=== PATIENT | male | born 1965 | race Caucasian/White ===

== ENCOUNTER 2017-09-05 06:55 | Day surgery (SDC) | payer OTHER ==
[2017-09-05] MEDS ORDERED: FENTAnyl 50 MCG/ML VIAL (09:45)
[2017-09-05] MEDS ORDERED: MIDAZOLAM 1 MG/ML 2 ML INJ ×2 (09:45)
== END 2017-09-05 16:21 | disposition home or self-care (01) ==
LOC: GIL 06:55
DX: Z12.11 Encounter for screening for malignant neoplasm of colon (principal); K29.50 Unspecified chronic gastritis without bleeding; K64.8 Other hemorrhoids; F17.200 Nicotine dependence, unspecified, uncomplicated
CPT/HCPCS: 43239; 82962; 88305; 88312

== ENCOUNTER 2017-09-16 13:18 | Emergency (ER) | payer OTHER ==
[2017-09-16] MEDS: FAMOTIDINE 20 MG INJ IV (17:39)
[2017-09-16] MEDS: LIDOCAINE/MYLANTA 40 ML BTL PO (17:39)
[2017-09-16] MEDS: ONDANSETRON 4 MG INJ IV (17:39)
[2017-09-16] MEDS: morphine 4 MG/ML VIAL IV (17:40)
[2017-09-16] MEDS: LACTATED RINGER'S 1,000 ML IV (17:40)
[2017-09-16 17:53] LABS: ADD MAN DIFF? NO
[2017-09-16 17:55] LABS: WHITE BLOOD COUNT 7.9 10^3/ul (4.8-10.8)
[2017-09-16 17:55] LABS: BASOPHILS % 0.4 % (0.0-2.0); EOSINOPHILS # 0.1 10^3/ul (0.0-0.5); EOSINOPHILS % 0.9 % (0.0-7.0); HEMATOCRIT 39.6 % (42.0-52.0); HEMOGLOBIN 13.8 g/dl (14.0-18.0); LYMPHOCYTES # 1.9 10^3/ul (0.8-2.9); LYMPHOCYTES % 23.9 % (15.0-51.0); MEAN CORPUSCULAR HEMOGLOBIN 30.9 pg (29.0-33.0); MEAN CORPUSCULAR HGB CONC 34.8 g/dl (32.0-37.0); MEAN CORPUSCULAR VOLUME 88.6 fl (82.0-101.0); MEAN PLATELET VOLUME 9.2 fl (7.4-10.4); MONOCYTE # 0.5 10^3/ul (0.3-0.9); MONOCYTES % 6.1 % (0.0-11.0); NEUTROPHIL # 5.4 10^3/ul (1.6-7.5); NEUTROPHILS % 68.4 % (39.0-77.0); PLATELET COUNT 198 10^3/UL (140-415); RED BLOOD COUNT 4.47 10^6/ul (4.70-6.10); RED CELL DISTRIBUTION WIDTH 11.7 % (11.5-14.5)
[2017-09-16 18:01] LABS: ADD UMIC NO; UR ASCORBIC ACID 20 mg/dL (NEGATIVE); UR BILIRUBIN (Dip) NEGATIVE (NEGATIVE); UR BLOOD (Dip) NEGATIVE (NEGATIVE); UR CLARITY CLEAR (CLEAR); UR COLOR YELLOW (YELLOW); UR GLUCOSE (Dip) NEGATIVE (NEGATIVE); UR KETONES (Dip) NEGATIVE (NEGATIVE); UR LEUKOCYTE ESTERASE (Dip) NEGATIVE Leu/ul (NEGATIVE); UR NITRITE (Dip) NEGATIVE (NEGATIVE); UR SPECIFIC GRAVITY (Dip) 1.009 (1.003-1.030); UR TOTAL PROTEIN (Dip) NEGATIVE (NEGATIVE); UR UROBILINOGEN (Dip) NEGATIVE (NEGATIVE)
[2017-09-16 18:13] LABS: ALANINE AMINOTRANSFERASE 24 IU/L (13-69); ALBUMIN 4.3 g/dl (3.3-4.9); ALBUMIN/GLOBULIN RATIO 1.26; ALKALINE PHOSPHATASE 70 IU/L (42-121); ANION GAP 15 (8-16); ASPARTATE AMINO TRANSFERASE 22 IU/L (15-46); BILIRUBIN,INDIRECT 0.3 mg/dl (0-1.1); BILIRUBIN,TOTAL 0.3 mg/dl (0.2-1.3); BLOOD UREA NITROGEN 16 mg/dl (7-20); CALCIUM 9.4 mg/dl (8.4-10.2); CARBON DIOXIDE 31 mmol/L (21-31); CHLORIDE 101 mmol/L (97-110); CREATININE 0.77 mg/dl (0.61-1.24); GLUCOSE 159 mg/dl (70-220); LIPASE 119 U/L (23-300); POTASSIUM 4.4 mmol/L (3.5-5.1); SODIUM 143 mmol/L (135-144); TOTAL PROTEIN 7.7 g/dl (6.1-8.1)
== END 2017-09-16 19:34 | disposition home or self-care (01) ==
LOC: FTE 13:18
DX: R10.13 Epigastric pain (principal); E11.9 Type 2 diabetes mellitus without complications
CPT/HCPCS: 36415; 80053; 81003; 83690; 85025; 96374; 96375; 99284-25

== ENCOUNTER 2018-03-30 22:01 | Inpatient (IN) | payer OTHER ==
[2018-03-30] MEDS ORDERED: NACL 0.9% 3 ML SYG IV (23:00)
[2018-03-30] MEDS ORDERED: ACETAMINOPHEN 325 MG TAB PO (23:00)
[2018-03-30] MEDS: SOD CHLORIDE 0.9% 1,000 ML IV (23:10)
[2018-03-30] MEDS: ONDANSETRON 4 MG INJ IV (23:12)
[2018-03-30] MEDS: morphine 2 MG INJ IV (23:12)
[2018-03-31] MEDS: PANTOPRAZOLE 40 MG INJ IV ×2 (00:24→05:49)
[2018-03-31] MEDS: SUCRALFATE 1 GM TAB PO ×5 (00:24→20:56)
[2018-03-31] MEDS: LORAZEPAM 2 MG INJ IV (00:24)
[2018-03-31 00:28] LABS: ADD MAN DIFF? NO
[2018-03-31 00:30] LABS: BASOPHILS % 0.5 % (0.0-2.0); EOSINOPHILS # 0.1 10^3/ul (0.0-0.5); EOSINOPHILS % 0.6 % (0.0-7.0); HEMATOCRIT 37.4 % (42.0-52.0); HEMOGLOBIN 12.9 g/dl (14.0-18.0); LYMPHOCYTES # 2.1 10^3/ul (0.8-2.9); LYMPHOCYTES % 26.7 % (15.0-51.0); MEAN CORPUSCULAR HEMOGLOBIN 30.3 pg (29.0-33.0); MEAN CORPUSCULAR HGB CONC 34.5 g/dl (32.0-37.0); MEAN CORPUSCULAR VOLUME 87.8 fl (82.0-101.0); MEAN PLATELET VOLUME 9.2 fl (7.4-10.4); MONOCYTE # 0.5 10^3/ul (0.3-0.9); MONOCYTES % 6.7 % (0.0-11.0); NEUTROPHIL # 5.1 10^3/ul (1.6-7.5); NEUTROPHILS % 65.2 % (39.0-77.0); PLATELET COUNT 180 10^3/UL (140-415); RED BLOOD COUNT 4.26 10^6/ul (4.70-6.10); RED CELL DISTRIBUTION WIDTH 11.5 % (11.5-14.5)
[2018-03-31 00:30] LABS: WHITE BLOOD COUNT 7.9 10^3/ul (4.8-10.8)
[2018-03-31 00:48] LABS: ALANINE AMINOTRANSFERASE 20 IU/L (13-69); ALBUMIN 4.1 g/dl (3.3-4.9); ALBUMIN/GLOBULIN RATIO 1.57; ALKALINE PHOSPHATASE 58 IU/L (42-121); ANION GAP 11 (5-13); ASPARTATE AMINO TRANSFERASE 21 IU/L (15-46); BILIRUBIN,INDIRECT 0.3 mg/dl (0-1.1); BILIRUBIN,TOTAL 0.3 mg/dl (0.2-1.3); BLOOD UREA NITROGEN 16 mg/dl (7-20); CARBON DIOXIDE 27 mmol/L (21-31); CHLORIDE 102 mmol/L (97-110); CREATININE 0.79 mg/dl (0.61-1.24); Estimated GFR > 60 mL/min (>60); GLUCOSE 107 mg/dl (70-220); POTASSIUM 4.6 mmol/L (3.5-5.1); SODIUM 140 mmol/L (135-144); TOTAL PROTEIN 6.7 g/dl (6.1-8.1)
[2018-03-31 06:31] LABS: ADD MAN DIFF? NO
[2018-03-31 06:34] LABS: WHITE BLOOD COUNT 6.7 10^3/ul (4.8-10.8)
[2018-03-31 06:34] LABS: BASOPHILS % 0.6 % (0.0-2.0); EOSINOPHILS # 0.1 10^3/ul (0.0-0.5); HEMATOCRIT 39.6 % (42.0-52.0); HEMOGLOBIN 13.4 g/dl (14.0-18.0); LYMPHOCYTES # 2.4 10^3/ul (0.8-2.9); MEAN CORPUSCULAR HEMOGLOBIN 30.1 pg (29.0-33.0); MEAN CORPUSCULAR HGB CONC 33.8 g/dl (32.0-37.0); MEAN PLATELET VOLUME 9.5 fl (7.4-10.4); MONOCYTE # 0.5 10^3/ul (0.3-0.9); MONOCYTES % 7.7 % (0.0-11.0); NEUTROPHIL # 3.7 10^3/ul (1.6-7.5); NEUTROPHILS % 55.6 % (39.0-77.0); PLATELET COUNT 191 10^3/UL (140-415); RED BLOOD COUNT 4.45 10^6/ul (4.70-6.10); RED CELL DISTRIBUTION WIDTH 11.5 % (11.5-14.5)
[2018-03-31 07:03] LABS: HEMOGLOBIN A1C 7.3 % (0-5.9)
[2018-03-31 07:20] LABS: ALANINE AMINOTRANSFERASE 19 IU/L (13-69); ALBUMIN 4.1 g/dl (3.3-4.9); ALBUMIN/GLOBULIN RATIO 1.36; ALKALINE PHOSPHATASE 56 IU/L (42-121); ANION GAP 10 (5-13); ASPARTATE AMINO TRANSFERASE 23 IU/L (15-46); BILIRUBIN,INDIRECT 0.5 mg/dl (0-1.1); BILIRUBIN,TOTAL 0.5 mg/dl (0.2-1.3); BLOOD UREA NITROGEN 14 mg/dl (7-20); CARBON DIOXIDE 29 mmol/L (21-31); CHLORIDE 103 mmol/L (97-110); CHOL/HDL RATIO 4.5 RATIO; CHOLESTEROL 153 mg/dl (100-200); CREATININE 0.83 mg/dl (0.61-1.24); Estimated GFR > 60 mL/min (>60); GLUCOSE 120 mg/dl (70-220); HDL CHOLESTEROL 34 mg/dl (28-71); LDL CHOLESTEROL,CALCULATED 96 mg/dl; MAGNESIUM 2.2 mg/dl (1.7-2.5); POTASSIUM 4.6 mmol/L (3.5-5.1); SODIUM 142 mmol/L (135-144); TOTAL PROTEIN 7.1 g/dl (6.1-8.1); TRIGLYCERIDES 116 mg/dl (0-149)
[2018-03-31 08:12] LABS: THYROID STIMULATING HORMONE 0.893 MIU/L (0.465-4.680)
[2018-03-31] MEDS ORDERED: GLUCOSE GEL 15 GRAM TUBE BUCCAL (11:00)
[2018-03-31] MEDS ORDERED: DEXTROSE 50% 50 ML SYRINGE IV ×2 (11:00)
[2018-03-31] MEDS ORDERED: GLUCOSE GEL 15 GRAM TUBE PO ×2 (11:00)
[2018-03-31] MEDS ORDERED: GLUCAGON 1 MG INJ IM (11:00)
[2018-03-31] MEDS: SOD CHLORIDE 0.9% 1,000 ML IV ×2 (11:19→14:54)
[2018-03-31] MEDS: INSULIN ASPART [NOVOLOG] 3 ML PEN SC ×3 (12:26→21:00)
[2018-03-31] MEDS: morphine 2 MG INJ IV ×2 (14:49→21:01)
[2018-03-31] MEDS: ONDANSETRON 4 MG INJ IV ×2 (14:53→21:10)
[2018-03-31] MEDS: clonAZEPAM 0.5 MG TAB PO (21:00)
[2018-04-01 01:01] LABS: AMPHETAMINE/METHAMPHETAMINE Negative (NEGATIVE); BARBITURATES Negative (NEGATIVE); BENZODIAZEPINES Negative (NEGATIVE); CANNABINOIDS Negative (NEGATIVE); COCAINE Negative (NEGATIVE); OPIATES Positive (NEGATIVE)
[2018-04-01] MEDS: ACCUCHECK AT 2AM (Patients on SS coverage) XX (02:00)
[2018-04-01] MEDS: morphine 2 MG INJ IV (03:48)
[2018-04-01 05:17] LABS: ADD MAN DIFF? NO
[2018-04-01 05:24] LABS: WHITE BLOOD COUNT 6.5 10^3/ul (4.8-10.8)
[2018-04-01 05:24] LABS: BASOPHILS % 0.3 % (0.0-2.0); EOSINOPHILS # 0.1 10^3/ul (0.0-0.5); EOSINOPHILS % 0.8 % (0.0-7.0); HEMATOCRIT 35.1 % (42.0-52.0); HEMOGLOBIN 12.2 g/dl (14.0-18.0); LYMPHOCYTES # 1.9 10^3/ul (0.8-2.9); LYMPHOCYTES % 28.8 % (15.0-51.0); MEAN CORPUSCULAR HEMOGLOBIN 30.1 pg (29.0-33.0); MEAN CORPUSCULAR HGB CONC 34.8 g/dl (32.0-37.0); MEAN CORPUSCULAR VOLUME 86.7 fl (82.0-101.0); MEAN PLATELET VOLUME 9.4 fl (7.4-10.4); MONOCYTE # 0.5 10^3/ul (0.3-0.9); MONOCYTES % 6.9 % (0.0-11.0); NEUTROPHIL # 4.1 10^3/ul (1.6-7.5); PLATELET COUNT 175 10^3/UL (140-415); RED BLOOD COUNT 4.05 10^6/ul (4.70-6.10); RED CELL DISTRIBUTION WIDTH 11.1 % (11.5-14.5)
[2018-04-01 05:44] LABS: MAGNESIUM 1.9 mg/dl (1.7-2.5)
[2018-04-01 05:44] LABS: PHOSPHORUS 3.5 mg/dl (2.5-4.9)
[2018-04-01 05:59] LABS: ALANINE AMINOTRANSFERASE 24 IU/L (13-69); ALBUMIN 3.5 g/dl (3.3-4.9); ALBUMIN/GLOBULIN RATIO 1.45; ALKALINE PHOSPHATASE 52 IU/L (42-121); ANION GAP 7 (5-13); ASPARTATE AMINO TRANSFERASE 18 IU/L (15-46); BILIRUBIN,INDIRECT 0.3 mg/dl (0-1.1); BILIRUBIN,TOTAL 0.3 mg/dl (0.2-1.3); BLOOD UREA NITROGEN 11 mg/dl (7-20); CALCIUM 8.8 mg/dl (8.4-10.2); CARBON DIOXIDE 28 mmol/L (21-31); CHLORIDE 105 mmol/L (97-110); CREATININE 0.82 mg/dl (0.61-1.24); Estimated GFR > 60 mL/min (>60); GLUCOSE 106 mg/dl (70-220); POTASSIUM 4.1 mmol/L (3.5-5.1); SODIUM 140 mmol/L (135-144); TOTAL PROTEIN 5.9 g/dl (6.1-8.1)
[2018-04-01] MEDS: PANTOPRAZOLE 40 MG INJ IV ×2 (06:23→20:19)
[2018-04-01] MEDS: SOD CHLORIDE 0.9% 1,000 ML IV ×2 (06:26→18:35)
[2018-04-01] MEDS: INSULIN ASPART [NOVOLOG] 3 ML PEN SC ×4 (08:00→20:18)
[2018-04-01] MEDS: SUCRALFATE 1 GM TAB PO ×4 (08:33→20:19)
[2018-04-01] MEDS: DOCUSATE SODIUM 100 MG CAP PO (12:00)
[2018-04-01] MEDS: HYDROCODONE/APAP (5/325) TAB PO ×2 (12:00→19:27)
[2018-04-01] MEDS: BISACODYL (EC) 5 MG TAB PO (12:00)
[2018-04-01] MEDS: POLYETHYLENE GLYCOL 17 GM PACKET PO (13:00)
[2018-04-01] MEDS: HYOSCYAMINE 0.125 MG TAB PO ×3 (15:50→23:58)
[2018-04-01] MEDS: METOCLOPRAMIDE 5 MG TAB PO (20:19)
[2018-04-01] MEDS: clonAZEPAM 0.5 MG TAB PO (20:22)
[2018-04-02] MEDS: ACCUCHECK AT 2AM (Patients on SS coverage) XX (01:40)
[2018-04-02 05:06] LABS: ADD MAN DIFF? NO
[2018-04-02 05:09] LABS: BASOPHILS % 0.6 % (0.0-2.0); EOSINOPHILS # 0.1 10^3/ul (0.0-0.5); EOSINOPHILS % 1.3 % (0.0-7.0); HEMATOCRIT 34.1 % (42.0-52.0); HEMOGLOBIN 12.1 g/dl (14.0-18.0); LYMPHOCYTES # 2.5 10^3/ul (0.8-2.9); LYMPHOCYTES % 35.7 % (15.0-51.0); MEAN CORPUSCULAR HEMOGLOBIN 30.8 pg (29.0-33.0); MEAN CORPUSCULAR HGB CONC 35.5 g/dl (32.0-37.0); MEAN CORPUSCULAR VOLUME 86.8 fl (82.0-101.0); MEAN PLATELET VOLUME 9.2 fl (7.4-10.4); MONOCYTE # 0.4 10^3/ul (0.3-0.9); MONOCYTES % 6.3 % (0.0-11.0); NEUTROPHIL # 3.9 10^3/ul (1.6-7.5); NEUTROPHILS % 55.8 % (39.0-77.0); PLATELET COUNT 180 10^3/UL (140-415); RED BLOOD COUNT 3.93 10^6/ul (4.70-6.10)
[2018-04-02 05:24] LABS: PHOSPHORUS 3.2 mg/dl (2.5-4.9)
[2018-04-02 05:30] LABS: ALANINE AMINOTRANSFERASE 22 IU/L (13-69); ALBUMIN 3.3 g/dl (3.3-4.9); ALKALINE PHOSPHATASE 46 IU/L (42-121); ANION GAP 8 (5-13); ASPARTATE AMINO TRANSFERASE 17 IU/L (15-46); BILIRUBIN,INDIRECT 0.2 mg/dl (0-1.1); BILIRUBIN,TOTAL 0.2 mg/dl (0.2-1.3); BLOOD UREA NITROGEN 16 mg/dl (7-20); CALCIUM 8.6 mg/dl (8.4-10.2); CARBON DIOXIDE 26 mmol/L (21-31); CHLORIDE 107 mmol/L (97-110); CREATININE 0.71 mg/dl (0.61-1.24); Estimated GFR > 60 mL/min (>60); GLUCOSE 111 mg/dl (70-220); POTASSIUM 4.2 mmol/L (3.5-5.1); SODIUM 141 mmol/L (135-144); TOTAL PROTEIN 5.5 g/dl (6.1-8.1)
[2018-04-02] MEDS: HYOSCYAMINE 0.125 MG TAB PO ×3 (05:50→18:22)
[2018-04-02] MEDS: SOD CHLORIDE 0.9% 1,000 ML IV ×2 (07:12→22:56)
[2018-04-02] MEDS: INSULIN ASPART [NOVOLOG] 3 ML PEN SC ×4 (08:00→20:23)
[2018-04-02] MEDS: HYDROCODONE/APAP (5/325) TAB PO ×2 (08:09→16:51)
[2018-04-02] MEDS: PANTOPRAZOLE 40 MG INJ IV ×2 (08:11→20:23)
[2018-04-02] MEDS: POLYETHYLENE GLYCOL 17 GM PACKET PO (08:11)
[2018-04-02] MEDS: SUCRALFATE 1 GM TAB PO ×4 (08:11→20:23)
[2018-04-02] MEDS: METOCLOPRAMIDE 5 MG TAB PO ×3 (08:12→18:22)
[2018-04-02] MEDS ORDERED: IOHEXOL 14.3 MG(I)/ML (ADULT) BTL PO (10:30)
[2018-04-02] MEDS: IOHEXOL 14.3 MG(I)/ML (ADULT) BTL PO (13:37)
[2018-04-02] MEDS: clonAZEPAM 0.5 MG TAB PO (20:26)
[2018-04-03] MEDS: HYOSCYAMINE 0.125 MG TAB PO ×3 (00:12→12:01)
[2018-04-03] MEDS: METOCLOPRAMIDE 5 MG TAB PO ×5 (00:12→23:35)
[2018-04-03] MEDS: ACCUCHECK AT 2AM (Patients on SS coverage) XX (01:10)
[2018-04-03] MEDS: HYDROCODONE/APAP (5/325) TAB PO ×3 (02:04→18:37)
[2018-04-03 06:25] LABS: ADD MAN DIFF? NO
[2018-04-03 06:32] LABS: WHITE BLOOD COUNT 6.5 10^3/ul (4.8-10.8)
[2018-04-03 06:32] LABS: BASOPHILS % 0.5 % (0.0-2.0); EOSINOPHILS # 0.1 10^3/ul (0.0-0.5); EOSINOPHILS % 1.1 % (0.0-7.0); HEMATOCRIT 33.5 % (42.0-52.0); HEMOGLOBIN 11.9 g/dl (14.0-18.0); LYMPHOCYTES # 2.3 10^3/ul (0.8-2.9); LYMPHOCYTES % 35.9 % (15.0-51.0); MEAN CORPUSCULAR HEMOGLOBIN 30.6 pg (29.0-33.0); MEAN CORPUSCULAR HGB CONC 35.5 g/dl (32.0-37.0); MEAN CORPUSCULAR VOLUME 86.1 fl (82.0-101.0); MEAN PLATELET VOLUME 9.5 fl (7.4-10.4); MONOCYTE # 0.5 10^3/ul (0.3-0.9); NEUTROPHIL # 3.5 10^3/ul (1.6-7.5); NEUTROPHILS % 54.2 % (39.0-77.0); PLATELET COUNT 168 10^3/UL (140-415); RED BLOOD COUNT 3.89 10^6/ul (4.70-6.10); RED CELL DISTRIBUTION WIDTH 11.2 % (11.5-14.5)
[2018-04-03 07:01] LABS: ANION GAP 6 (5-13); BLOOD UREA NITROGEN 12 mg/dl (7-20); CALCIUM 8.4 mg/dl (8.4-10.2); CARBON DIOXIDE 26 mmol/L (21-31); CHLORIDE 109 mmol/L (97-110); CREATININE 0.76 mg/dl (0.61-1.24); Estimated GFR > 60 mL/min (>60); GLUCOSE 103 mg/dl (70-220); SODIUM 141 mmol/L (135-144)
[2018-04-03 07:05] LABS: MAGNESIUM 1.8 mg/dl (1.7-2.5)
[2018-04-03 07:05] LABS: PHOSPHORUS 3.5 mg/dl (2.5-4.9)
[2018-04-03] MEDS: INSULIN ASPART [NOVOLOG] 3 ML PEN SC ×4 (07:56→20:32)
[2018-04-03] MEDS: PANTOPRAZOLE 40 MG INJ IV ×2 (08:31→20:31)
[2018-04-03] MEDS: POLYETHYLENE GLYCOL 17 GM PACKET PO (08:31)
[2018-04-03] MEDS: SUCRALFATE 1 GM TAB PO ×4 (08:31→20:31)
[2018-04-03] MEDS: clonAZEPAM 0.5 MG TAB PO ×2 (08:39→20:32)
[2018-04-03] MEDS: THIAMINE 100 MG TAB PO (15:44)
[2018-04-03] MEDS: DOCUSATE SODIUM 100 MG CAP PO (20:31)
[2018-04-04] MEDS: HYDROCODONE/APAP (5/325) TAB PO (00:58)
[2018-04-04] MEDS: INSULIN ASPART [NOVOLOG] 3 ML PEN SC ×6 (01:02→20:41)
[2018-04-04] MEDS: ACCUCHECK AT 2AM (Patients on SS coverage) XX (01:03)
[2018-04-04] MEDS: METOCLOPRAMIDE 5 MG TAB PO ×3 (05:28→17:34)
[2018-04-04 06:39] LABS: ADD MAN DIFF? NO
[2018-04-04 06:55] LABS: WHITE BLOOD COUNT 6.4 10^3/ul (4.8-10.8)
[2018-04-04 06:55] LABS: BASOPHILS % 0.3 % (0.0-2.0); EOSINOPHILS # 0.1 10^3/ul (0.0-0.5); EOSINOPHILS % 1.2 % (0.0-7.0); HEMATOCRIT 33.9 % (42.0-52.0); HEMOGLOBIN 12.3 g/dl (14.0-18.0); LYMPHOCYTES # 2.2 10^3/ul (0.8-2.9); LYMPHOCYTES % 34.3 % (15.0-51.0); MEAN CORPUSCULAR HEMOGLOBIN 31.1 pg (29.0-33.0); MEAN CORPUSCULAR HGB CONC 36.3 g/dl (32.0-37.0); MEAN CORPUSCULAR VOLUME 85.6 fl (82.0-101.0); MEAN PLATELET VOLUME 9.6 fl (7.4-10.4); MONOCYTE # 0.5 10^3/ul (0.3-0.9); MONOCYTES % 8.3 % (0.0-11.0); NEUTROPHIL # 3.6 10^3/ul (1.6-7.5); NEUTROPHILS % 55.6 % (39.0-77.0); PLATELET COUNT 179 10^3/UL (140-415); RED BLOOD COUNT 3.96 10^6/ul (4.70-6.10); RED CELL DISTRIBUTION WIDTH 11.1 % (11.5-14.5)
[2018-04-04 07:14] LABS: INR 1.02; PROTIME 13.5 Sec (11.9-14.9); PT RATIO 1.1
[2018-04-04 07:15] LABS: PARTIAL THROMBOPLASTIN TIME 28.8 Sec (23.0-35.0)
[2018-04-04 07:23] LABS: TROPONIN-I < 0.012 ng/ml (0.000-0.120)
[2018-04-04 07:35] LABS: ALANINE AMINOTRANSFERASE 26 IU/L (13-69); ALBUMIN 3.8 g/dl (3.3-4.9); ALBUMIN/GLOBULIN RATIO 1.58; ALKALINE PHOSPHATASE 51 IU/L (42-121); ANION GAP 12 (5-13); ASPARTATE AMINO TRANSFERASE 19 IU/L (15-46); BILIRUBIN,INDIRECT 0.3 mg/dl (0-1.1); BILIRUBIN,TOTAL 0.3 mg/dl (0.2-1.3); BLOOD UREA NITROGEN 15 mg/dl (7-20); CALCIUM 8.5 mg/dl (8.4-10.2); CARBON DIOXIDE 28 mmol/L (21-31); CHLORIDE 104 mmol/L (97-110); CREATININE 0.68 mg/dl (0.61-1.24); Estimated GFR > 60 mL/min (>60); GLUCOSE 108 mg/dl (70-220); LIPASE 65 U/L (23-300); POTASSIUM 4.1 mmol/L (3.5-5.1); SODIUM 144 mmol/L (135-144); TOTAL PROTEIN 6.2 g/dl (6.1-8.1)
[2018-04-04] MEDS: IODIXANOL LOCM 100 ML BTL (08:06)
[2018-04-04] MEDS: SOD CHLORIDE 0.9% 100 ML (08:06)
[2018-04-04] MEDS: SUCRALFATE 1 GM TAB PO ×4 (09:00→20:39)
[2018-04-04] MEDS: POLYETHYLENE GLYCOL 17 GM PACKET PO (09:00)
[2018-04-04] MEDS: THIAMINE 100 MG TAB PO (09:00)
[2018-04-04] MEDS: PANTOPRAZOLE 40 MG INJ IV ×2 (09:07→20:39)
[2018-04-04] MEDS: clonAZEPAM 0.5 MG TAB PO ×2 (09:54→20:48)
[2018-04-04] MEDS: METOPROLOL 5 MG INJ (15:02)
[2018-04-04] MEDS: FENTAnyl 50 MCG/ML VIAL (15:02)
[2018-04-04] MEDS: PROPOFOL 20 ML (15:02)
[2018-04-04] MEDS: DOCUSATE SODIUM 100 MG CAP PO (20:39)
[2018-04-05] MEDS: METOCLOPRAMIDE 5 MG TAB PO ×4 (01:02→17:16)
[2018-04-05] MEDS: ACCUCHECK AT 2AM (Patients on SS coverage) XX (01:04)
[2018-04-05] MEDS: ACCU-CHEK XX (01:04)
[2018-04-05] MEDS: HYDROCODONE/APAP (5/325) TAB PO ×3 (01:26→16:10)
[2018-04-05] MEDS: HYOSCYAMINE 0.125 MG TAB PO (05:23)
[2018-04-05 05:31] LABS: ADD MAN DIFF? NO
[2018-04-05 05:38] LABS: WHITE BLOOD COUNT 8.1 10^3/ul (4.8-10.8)
[2018-04-05 05:38] LABS: BASOPHILS % 0.2 % (0.0-2.0); EOSINOPHILS # 0.1 10^3/ul (0.0-0.5); EOSINOPHILS % 0.9 % (0.0-7.0); HEMATOCRIT 33.9 % (42.0-52.0); LYMPHOCYTES # 2.2 10^3/ul (0.8-2.9); MEAN CORPUSCULAR HEMOGLOBIN 30.2 pg (29.0-33.0); MEAN CORPUSCULAR HGB CONC 35.4 g/dl (32.0-37.0); MEAN CORPUSCULAR VOLUME 85.4 fl (82.0-101.0); MEAN PLATELET VOLUME 9.5 fl (7.4-10.4); MONOCYTE # 0.6 10^3/ul (0.3-0.9); MONOCYTES % 6.9 % (0.0-11.0); NEUTROPHIL # 5.2 10^3/ul (1.6-7.5); NEUTROPHILS % 64.6 % (39.0-77.0); PLATELET COUNT 184 10^3/UL (140-415); RED BLOOD COUNT 3.97 10^6/ul (4.70-6.10); RED CELL DISTRIBUTION WIDTH 11.4 % (11.5-14.5)
[2018-04-05 06:15] LABS: ALANINE AMINOTRANSFERASE 19 IU/L (13-69); ALBUMIN 3.8 g/dl (3.3-4.9); ALKALINE PHOSPHATASE 57 IU/L (42-121); ANION GAP 11 (5-13); ASPARTATE AMINO TRANSFERASE 20 IU/L (15-46); BILIRUBIN,INDIRECT 0.4 mg/dl (0-1.1); BILIRUBIN,TOTAL 0.4 mg/dl (0.2-1.3); BLOOD UREA NITROGEN 16 mg/dl (7-20); CALCIUM 9.1 mg/dl (8.4-10.2); CARBON DIOXIDE 25 mmol/L (21-31); CHLORIDE 106 mmol/L (97-110); CREATININE 0.79 mg/dl (0.61-1.24); Estimated GFR > 60 mL/min (>60); GLUCOSE 136 mg/dl (70-220); MAGNESIUM 1.9 mg/dl (1.7-2.5); POTASSIUM 3.8 mmol/L (3.5-5.1); SODIUM 142 mmol/L (135-144); TOTAL PROTEIN 6.5 g/dl (6.1-8.1)
[2018-04-05] MEDS: INSULIN ASPART [NOVOLOG] 3 ML PEN SC ×3 (07:56→17:15)
[2018-04-05] MEDS: THIAMINE 100 MG TAB PO (08:59)
[2018-04-05] MEDS: PANTOPRAZOLE 40 MG INJ IV (08:59)
[2018-04-05] MEDS: SUCRALFATE 1 GM TAB PO ×3 (08:59→17:16)
[2018-04-05] MEDS: POLYETHYLENE GLYCOL 17 GM PACKET PO (08:59)
[2018-04-05] MEDS: clonAZEPAM 0.5 MG TAB PO (10:10)
[2018-04-06] MEDS ORDERED: PANTOPRAZOLE (EC) 40 MG TAB PO (06:00)
== END 2018-04-05 18:00 | disposition home or self-care (01) | DRG 392 ==
LOC: PP2 22:01
PROC: 0DB98ZX Excision of Duodenum, Via Natural or Artificial Opening Endoscopic, Diagnostic (ICD-10-PCS; principal; 2018-04-04 14:28)
PROC: 0DB68ZX Excision of Stomach, Via Natural or Artificial Opening Endoscopic, Diagnostic (ICD-10-PCS; 2018-04-04 14:28)
DX: K29.50 Unspecified chronic gastritis without bleeding (principal); R91.1 Solitary pulmonary nodule; E11.9 Type 2 diabetes mellitus without complications; Z87.891 Personal history of nicotine dependence; F32.9 Major depressive disorder, single episode, unspecified; E88.81 Metabolic syndrome and other insulin resistance; K57.90 Diverticulosis of intestine, part unspecified, without perforation or abscess without bleeding
CPT/HCPCS: 74177; 80048; 80053; 80061; 80307; 82962; 83036; 83690; 83735; 84100; 84443; 84484; 85025; 85610; 85730; 87338; 88305; 88312; G0378